=== PATIENT | male | born 1995 | race Caucasian/White ===

== ENCOUNTER 2020-10-25 08:30 | Outpatient (REF) | payer MEDICAID, SELFPAY ==
--- NOTE | ~2020-10-25 | XR_ITS ---
EXAMINATION: XR KNEE, RIGHT CLINICAL INFORMATION: Pain. COMPARISON: None TECHNIQUE: AP, lateral, tunnel, and sunrise views of the right knee. FINDINGS: Bones and soft tissues are normal. No fracture or significant joint effusion. Alignment is anatomic. Joint spaces are well maintained. No abnormal soft tissue calcification. XR/XR knee RT 4V IMPRESSION: Normal right knee.
== END 2020-10-25 08:31 | disposition home or self-care (01) ==
LOC: HO.XRAY 08:30
PROVIDERS: PCP Internal Medicine; Visit Provider Internal Medicine
DX: M25.561 Pain in right knee (principal)
CPT/HCPCS: 73564

== ENCOUNTER 2020-10-25 10:11 | Outpatient (REF) | payer MEDICAID, SELFPAY ==
--- NOTE | 2020-10-31 07:50 | MHC.AU.ANO ---
Adult Audiological Evaluation Date of Visit: 10/25/20 [employer] Pipeline Used: Not Applicable Reason for Appointment: Audiologic evaluation due to decreased hearing ability, left ear poorer than right. Dick reports he consistently needs to increase the volume of the television and frequently asks for speech to be repeated. Does patient feel they have a hearing loss?: Yes If Yes, Which Ear?: Both Ears When Was Hearing Difficulty First Noticed?: Since childhood Has hearing been tested previously?: Unknown Hearing Handicap Inventory: HHIE SCORE: 20 Based on HHIE score, patient has: Mild to moderate perceived hearing handicap Ear History: Ear Infections in Childhood: Both Ears Previous Ear Surgery: Bilteral pressure equalization tubes with complication of tubes breaking Bothersome Tinnitus/Ringing/Noises in Ears: Intermittent and brief in nature, both ears Ear used on the phone: Right Ear History of occupational noise exposure?: Yes History: History: No Medical History: Medical History: Headache, Head Injury, Experiences unsteadiness when rising quickly. History of concussion in 2013. Medication List: Lexapro, Claritin, Proair (as needed) Otoscopy: Right Ear: Unremarkable Left Ear: Unremarkable Tympanometry: Tympanometry performed due to: History of middle ear dysfunction Right Ear: Normal Middle Ear System (Type A) Left Ear: Non-compliant Middle Ear System (Type B) Otoacoustic Emissions Frequency Range Used: 1.6-8 kHz Right Ear Results: Present Emissions Analysis: Present emissions suggest normal cochlear function Rules out peripheral hearing loss greater than a mild degree Left Ear Results: Absent Emissions Analysis: Reduced/absent emissions may be consequence of middle ear dysfunction Hearing Evaluation: Transducer(s) Used: Insert Earphones Bone Conduction Method: Conventional Audiometry Stimuli Used: Pure Tones Right Ear: Description of Hearing: Normal hearing thresholds through all frequencies Left Ear: Description of Hearing: Mild conductive hearing loss through all frequencies Speech Recognition Threshold (SRT): Method Used: Monitored Live Voice Stimuli Used: Spondee Words Right Ear: 0 dB HL Left Ear: 20 dB HL Word Discrimination: Method: Recorded Lists Word Lists Used: NU-6 Right Ear: 96% at 50 dB HL Left Ear: 96% at 70 dB HL Recommendations: Referral to Ear, Nose, and Throat to address middle ear dysfunction. Audiological re-evaluation in 6 months. Will send a reminder card. Diagnosis: Primary Diagnosis: H90.12 ConductiveHL, Unilateral Left Ear, W/Unrestricted Contralateral Secondary Diagnosis: H69.92 Unspecified Eustachian Tube Dysfunction, Left Ear Services Performed: Comprehensive Audiological Evaluation (CPT 30452) Diagnostic Otoacoustic Emissions (CPT 30200, 26+TC) Tympanometry (CPT 77384) Signature: Provider: Anna Hobbs, CCC-A
== END 2020-10-25 10:12 | disposition home or self-care (01) ==
LOC: HO.SH 10:11
PROVIDERS: Visit Provider Internal Medicine
DX: H90.12 Conductive hearing loss, unilateral, left ear, with unrestricted hearing on the contralateral side (principal); H69.92 Unspecified Eustachian tube disorder, left ear
CPT/HCPCS: 92557; 92567; 92588

== ENCOUNTER 2023-11-16 08:20 | Outpatient (REF) | payer OTHER, SELFPAY ==
[2023-11-16 12:01] LABS: Alanine Aminotransferase 33 U/L (0-40); Albumin Level 4.3 g/dL (3.5-5.0); Alkaline Phosphatase 85 U/L (39-117); Anion Gap 13 (12-20); Aspartate Amino Transferase 31 U/L (5-37); Bilirubin Total 0.4 mg/dL (0.0-1.0); Blood Urea Nitrogen 12 mg/dL (9-16); Calcium 9.6 mg/dL (8.4-10.2); Carbon Dioxide 25 mmol/L (22-29); Chloride 107 mmol/L (96-108); Cholesterol 184 mg/dL (<200); Estimated Glomerular Filt Rate > 60; Glucose Random 89 mg/dL (60-115); HDL Cholesterol 35 mg/dL (>40); LDL Cholesterol Calculated 118 mg/dL (<100); Potassium 4.5 mmol/L (3.3-5.1); Sodium 140 mmol/L (135-145); Total Protein 8.1 g/dL (6.5-8.0); Triglycerides 155 mg/dL (<150)
[2023-11-16 12:03] LABS: TSH reflex Free T4 2.15 uIU/mL (0.32-4.0)
[2023-11-16 12:17] LABS: Estimated Average Glucose 108 mg/dL; Hemoglobin A1c % 5.4 % (<6.0)
[2023-11-16 12:47] LABS: Folate 5.2 ng/mL (> or = 4.0); Vitamin B12 434 pg/mL (200-900)
[2023-11-16 14:43] LABS: Reflex LDLD? No
== END 2023-11-16 08:21 | disposition home or self-care (01) ==
LOC: HO.HHCL 08:20
PROVIDERS: Visit Provider Family Medicine
DX: R25.2 Cramp and spasm (principal); R79.89 Other specified abnormal findings of blood chemistry; Z83.3 Family history of diabetes mellitus; E66.01 Morbid (severe) obesity due to excess calories; Z68.43 Body mass index [BMI] 50.0-59.9, adult
CPT/HCPCS: 36415; 80053; 80061; 82550; 82607; 82746; 83036; 84443

== ENCOUNTER 2023-11-19 10:29 | Outpatient (REF) | payer MEDICAID, SELFPAY ==
[2023-11-19 11:46] LABS: MANUAL DIFF FLAG NO
[2023-11-19 11:49] LABS: Basophils Absolute Auto 0.1 X10*3/uL (0.0-0.2); Basophils Percent Auto 0.7 % (0-2); Eosinophils Absolute Auto 0.2 X10*3/uL (0.0-0.4); Eosinophils Percent Auto 2.8 % (0-4); Hematocrit 46.1 % (42.0-52.0); Hemoglobin 14.9 g/dl (14.0-18.0); Imm Gran Abs Auto 0.01 X10*3/uL (0.00-0.03); Imm Gran Pct Auto 0.1 % (0.0-0.4); Lymphocytes Absolute Auto 3.1 X10*3/uL (1.2-4.9); Lymphocytes Percent Auto 38.1 % (20-40); Mean Corpuscular HGB Conc 32.3 g/dl (31.0-36.0); Mean Corpuscular Hemoglobin 26.4 pg (27.0-33.0); Mean Corpuscular Volume 81.7 fL (80.0-98.0); Mean Platelet Volume 8.4 fL (9.4-12.4); Monocytes Absolute Auto 0.7 X10*3/uL (0.1-1.2); Monocytes Percent Auto 7.9 % (2-11); Neutrophils Absolute Auto 4.2 x10*3/uL (2.0-8.3); Neutrophils Percent Auto 50.4 % (45-73); Platelet Count 364 X10*3/uL (160-400); Red Blood Count 5.64 X10*6/uL (4.60-5.80); Red Cell Distribution Width 13.1 % (11.0-16.0); White Blood Count 8.2 X10*3/uL (4.8-10.8)
[2023-11-19 11:52] LABS: Appearance Urine Clear; Color Urine Yellow; Glucose Urine UA Negative (Negative); Leukocyte Esterase Urine Negative (Negative); Nitrite Urine Negative (Negative); Urine Blood Negative (Negative); Urine Ketones Negative (Negative); Urine Protein Negative (Neg-Trace)
[2023-11-19 11:54] LABS: Bacteria Urine None Seen (None Seen); Hyaline Casts Urine 0-2 /LPF (0-2); RBC Urine 0-2 /HPF (0-2); Squamous Epithelial Cell Urine 0-2 /HPF (0-2); WBC Urine 0-5 /HPF (0-5)
[2023-11-19 12:20] LABS: Rheumatoid Factor < 13.0 IU/mL (<15.0)
[2023-11-19 12:23] LABS: C Reactive Protein 1.19 mg/dL (< or = 0.50); Lactate Dehydrogenase 188 U/L (118-273)
[2023-11-19 12:29] LABS: Erythrocyte Sedimentation Rate 15 MM/HR (0-15)
[2023-11-23 13:58] LABS: Cyclic Citrullinated Peptide <16 UNITS
== END 2023-11-19 10:30 | disposition home or self-care (01) ==
LOC: HO.HHCL 10:29
PROVIDERS: Visit Provider Family Medicine
DX: R25.2 Cramp and spasm (principal); R74.8 Abnormal levels of other serum enzymes
CPT/HCPCS: 36415; 81001; 83615; 83735; 85025; 85652; 86140; 86200; 86431

== ENCOUNTER 2024-10-03 08:26 | Outpatient (AMB) | payer OTHER, SELFPAY ==
--- OUTSIDE RECORDS SUMMARY | 2024-10-03 08:46 | XMS_ITS | Encounter Summary ---
Author Organization [employer] Address [address] 7t [place] [address] Care Team Providers Care Plastic Tile Setter Name Role Phone Halie Burris MD Primary Care Provider [phone] Reason for Visit * Reason Onset Date Comments prior authorization appt 03/20/2023 Encounter Details Date Type Department Care Team ([facility] st Contact Info) Description 03/20/2023 Telephone [facility] ADULT DENTAL [address] [place] [address] Hubert Broussard, YUKI [address] [place] [address] prior authorization appt Social History Tobacco Use Types Packs/Day Years Used Date Smoking Tobacco: Never Passive Smoke Exposure: Never Smokeless Tobacco: Never Housing Stability Answer Date Recorded What is your housing situation today? I have ashwin cancino 03/17/[address] you li ve. Do you have problems with any of the following? None of the above 03/17/2023 Food Insecurity Answer Date Recorded Within the past 12 months, y ou worried that your food would run out before you got money to buy more: Never True 03/17/2023 Within the past 12 months,th e food you bought just didn't last and you didn't have enough money to get more: Never True Transportation Answer Date Recorded In the past 12 months, has l ack of transportation kept you from medical appts, meetings, work or from getting things needed for daily living? No 03/17/2023 Utilities Answer Date Recorded In the past 12 months, has t he electric, gas, oil or water company threatened to shut off services in your home? No 03/17/2023 Depression Answer Date Recorded Patient Health Questionnaire-2 Score 0 06/05/2022 Sex and Gender Information Value Date Recorded Sex Assigned at Male 03/31/2022 10:37 AM EDT Legal Sex Male 10:37 AM EDT Gender Identity Male 03/31/2022 10:37 AM EDT Sexual Orientation Straight 03/31/2022 10 :37 AM EDT Occupation Industry Job Start Date Job End Date Full-time Not on file Not on file Not on file documented as of this encounter Miscellaneous Notes * Telephone Encounter - Susan Crow - 03/20/2023 9:03 AM EDT Prior authorization for tx was scanned on 03/17 for RCT. Patient would like to be scheduled. They also have secondary insurance DR documented in this encounter Plan of Treatment Upcoming Encounters Date Type Department Care Team (Late st Contact Info) Description 10/26/2024 9:00 AM EDT Office Visit [facility] MEDICINE [address] [place] [address] Halie Burris MD [address] [place] [address] 10/28/2024 2:30 PM EDT Office Visit [facility] ADULT DENTAL [address] [place] [address] Hubert Broussard, DMD [address] [place] [address] documented as of this encounter Visit Diagnoses Not on filedocumented in this encounter Care Teams Plastic Tile Setter Relationship Specialty Start Date End Date Halie Burris MD [address] [place] [address] PCP - General Family Medicine 04/17/22 documented as of this encounter
--- OUTSIDE RECORDS SUMMARY | 2024-10-03 08:46 | XMS_ITS | Patient Health Record ---
Author Organization [facility] Address [address] [place] [address] Care Team Providers Care Folding Machine Tender Name Role Phone MANDY YEN Unavailable [phone] REASON FOR REFERRAL No Information PLAN OF TREATMENT No Information Insurance Providers Payer Name Payer Address Payer Phone Subscriber Number Group Number Insured Name Patient Relationship to Insured Coverage Start Date Coverage End Date [address] [place], [place] [phone] [id number] Dick Harris Self - patient is the insured
--- OUTSIDE RECORDS SUMMARY | 2024-10-03 08:46 | XMS_ITS | Encounter Summary ---
Author Organization [employer] Address [address] [facility] 7t [place] [address] Care Team Providers Care Washing Machine Mechanic Name Role Phone Halie Burris MD Primary Care Provider [phone] Reason for Visit * Reason Onset Date Comments Med Refill 09/30/2024 Encounter Details Date Type Department Care Team ([facility] st Contact Info) Description 09/30/2024 Refill [facility] MEDICINE [address] [place], [place] [phone] Halie Burris MD [address] [place], [place] [phone] Social History Tobacco Use Types Packs/Day Years [...] encounter Miscellaneous Notes * Telephone Encounter - Jesenia Benitez - 09/30/2024 3:17 PM EDT Patient's Cate on HIPAA states Patient's seasonal allergies are bad. Requesting refill on Zyrtec. documented in this encounter Plan of Treatment Upcoming Encounters Date Type Department Care Team (Late st Contact Info) Description 10/26/2024 9:00 AM EDT Office Visit [facility] MEDICINE [address] [place] [address] Halie Burris MD [address] [place] [address] 10/28/2024 2:30 PM EDT Office Visit [facility] ADULT DENTAL [address] [place] [address] Hubert Broussard, DMD [address] [place] [address] documented as of this encounter Visit Diagnoses Not on filedocumented in this encounter Care Teams Washing Machine Mechanic Relationship Specialty Start Date End Date Halie Burris MD [address] [place] [address] PCP - General Family Medicine 04/17/22 documented as of this encounter
--- OUTSIDE RECORDS SUMMARY | 2024-10-03 08:46 | XMS_ITS | Encounter Summary ---
Author Organization [employer] Address [address] [facility] 7t [place] [address] Care Team Providers Care Cement Mason Helper Name Role Phone Halie Burris MD Primary Care Provider [phone] Encounter Details Date Type Department Care Team ([facility] st Contact Info) Description 04/21/2023 Orders Only [facility] MEDICINE [address] [place], [place] [phone] Halie Burris MD [address] [place], [place] [phone] Social History Tobacco Use Types Packs/Day Years [...] on file documented as of this encounter Plan of Treatment Upcoming Encounters Date Type Department Care Team (Late st Contact Info) Description 10/26/2024 9:00 AM EDT Office Visit [facility] MEDICINE [address] [place] [address] Halie Burris MD [address] [place] [address] 10/28/2024 2:30 PM EDT Office Visit [facility] CHC ADULT DENTAL [address] [place] [address] Hubert Broussard, DMD [address] [place] [address] documented as of this encounter Visit Diagnoses Not on filedocumented in this encounter Care Teams Cement Mason Helper Relationship Specialty Start Date End Date Halie Burris MD [address] [place] [address] PCP - General Family Medicine 04/17/22 documented as of this encounter
--- OUTSIDE RECORDS SUMMARY | 2024-10-03 08:46 | XMS_ITS | Encounter Summary ---
Author Organization [employer] [facility] Address [address] [facility] 7t [place] [address] Care Team Providers Care Web Coordinator Name Role Phone Halie Burris MD Primary Care Provider [phone] Encounter Details Date Type Department Care Team (Late st Contact Info) Description 09/12/2022 Orders Only [facility] [address] [place] [address] [phone] Halie Burris MD [address] [place] [address] [phone] Social History Tobacco Use Types Packs/Day Years Used Date Smoking Tobacco: Never Passive Smoke Exposure: Never Smokeless Tobacco: Never Depression Answer Date Recorded Patient Health Questionnaire-2 [...] Description 10/26/2024 9:00 AM EDT Office Visit [facility] [address] [place] [address] [phone] Halie Burris MD [address] [place] [phone] 10/28/2024 2:30 PM EDT Office Visit [facility] ADULT DENTAL [address] [place] [address] Hubert Broussard, DMD [address] [place] [address] documented as of this encounter Visit Diagnoses Not on filedocumented in this encounter Care Teams Web Coordinator Relationship Specialty Start Date End Date Halie Burris MD [address] [place] [address] PCP - General Family Medicine 04/17/22 documented as of this encounter
--- OUTSIDE RECORDS SUMMARY | 2024-10-03 08:46 | XMS_ITS | Encounter Summary ---
Author Organization [employer] [facility] Address [address] [place] [address] 7t [place] [address] Care Team Providers Care Injection Molding Machine Setter Name Role Phone Halie Burris MD Primary Care Provider [phone] Reason for Visit * Reason Comments Med Change Request Encounter Details Date Type Department Care Team (Late st Contact Info) Description 07/24/2022 Refill [facility] MEDICINE [address] [place] [address] [phone] Halie Burris MD [address] [place] [address] [phone] Class 3 severe obesity due to excess calories without serious comorbidity with body mass index (BMI) of 50.0 to 59.9 in adult (CMS/HCC) Social History Tobacco Use Types Packs/Day Years [...] Description 10/26/2024 9:00 AM EDT Office Visit [facility] MEDICINE [address] [place] [address] [phone] Halie Burris MD [address] [place], [place] [phone] 10/28/2024 2:30 PM EDT Office Visit [facility] CHC ADULT DENTAL [address] [place] [address] Hubert Broussard, DMD [address] [place] [address] documented as of this encounter Visit Diagnoses Diagnosis Class 3 severe obesity due to excess calories without serious comorbidity with body mass index (BMI) of 50.0 to 59.9 in adult documented in this encounter Care Teams Injection Molding Machine Setter Relationship Specialty Start Date End Date Halie Burris MD [address] [place] [address] PCP - General Family Medicine 04/17/22 documented as of this encounter
--- OUTSIDE RECORDS SUMMARY | 2024-10-03 08:46 | XMS_ITS | Encounter Summary ---
Author Organization [employer] [facility] Address [address] [facility] 7t [place] [address] Care Team Providers Care Lawn Sprinkler Installer Name Role Phone Halie Burris MD Primary Care Provider [phone] Encounter Details Date Type Department Care Team (Late st Contact Info) Description 06/05/2022 Abstract [facility] MEDICINE [address] [place], [place] [phone] Halie Burris MD [address] [place], [place] [phone] Social History Tobacco Use Types Packs/Day Years [...] file Not on file Not on file COVID-19 Exposure Response Date Recorded In the last 10 days, have yo u been in contact with someone who was confirmed or suspected to have Coronavirus/COVID-19? No / Unsure 06/05/2022 8:41 AM EST documented as of this encounter Plan of Treatment Upcoming Encounters Date Type Department Care Team (Late st Contact Info) Description 10/26/2024 9:00 AM EDT Office Visit [facility] MEDICINE [address] [place], [place] [phone] Halie Burris MD [address] [place] [address] 10/28/2024 2:30 PM EDT Office Visit [facility] ADULT DENTAL [address] [place], [place] [phone] Hubert Broussard, DMD [address] [place] [address] documented as of this encounter Visit Diagnoses Not on filedocumented in this encounter Care Teams Lawn Sprinkler Installer Relationship Specialty Start Date End Date Halie Burris MD [address] [place] [address] PCP - General Family Medicine 04/17/22 documented as of this encounter
--- OUTSIDE RECORDS SUMMARY | 2024-10-03 08:46 | XMS_ITS ---
Author Organization [facility] Address [address] [place] [address] Care Team Providers Care Pencil Inspector Name Role Phone MANDY YEN [phone] Encounters Encounter Location Date Provider Diagnosis [facility] [address] [place] [address] 08/06/2023 MANDY YEN PLAN OF TREATMENT No Information Progress Notes * STEVENAungharryDOB:1995 (28 yo M)Acc No.[id number]:08/06/2023 Patient:??Dick MOORE Provider:??MANDY HOUSTON PA-C :1995?Age:27 Y?Sex:Ma antonio Date:08/06/2023 Address:[address] [place], [place] [phone] Subjective: * Chief Complaints: * ? * Medical History:?? Objective: Assessment: Plan: * Treatment: * Procedure Codes:??06668 NO S HOW OFFICE VISIT * Images: Billing Information: * Visit Code:?? * Procedure Codes:?? 31003 NO SHOW OFFICE VISIT. * Sign off status: Pending * Provider:??MANDY HOUSTON PA-C Date:??11/2023
--- OUTSIDE RECORDS SUMMARY | 2024-10-03 08:46 | XMS_ITS | Encounter Summary ---
Author Organization [employer] Address [address] [facility] 7t [place] [address] Care Team Providers Care Doctor Of Dental Surgery Name Role Phone Halie Burris MD Primary Care Provider [phone] Encounter Details Date Type Department Care Team ([facility] st Contact Info) Description 04/09/2024 Orders Only [facility] MEDICINE [address] [place], [place] [phone] Halie Burris MD [address] [place], [place] [phone] Social History Tobacco Use Types Packs/Day Years [...] Description 10/26/2024 9:00 AM EDT Office Visit [facility] MEDICINE [address] [place] [address] Halie Burris MD [address] [place] [address] 10/28/2024 2:30 PM EDT Office Visit [facility] CH[facility] ADULT DENTAL [address] [place] [address] Hubert Broussard, DMD [address] [place] [address] documented as of this encounter Visit Diagnoses Not on filedocumented in this encounter Care Teams Doctor Of Dental Surgery Relationship Specialty Start Date End Date Halie Burris MD [address] [place] [address] PCP - General Family Medicine 04/17/22 documented as of this encounter
--- OUTSIDE RECORDS SUMMARY | 2024-10-03 08:46 | XMS_ITS | Clinical Summary ---
Author Organization [facility] Address [address] [place] [address] Care Team Providers Care Habilitative Interventionist Name Role Phone Unavailable Primary Care Provider Unavailabl e Social History Tobacco Use Types Packs/Day Years Used Date Smoking Tobacco: Never Assessed Sex and Gender Information Value Date Recorded Sex Assigned at Male 03/01/2020 1:22 PM EDT Gender Identity Not on file Sexual Orientation Not on file Plan of Treatment Health Maintenance Due Date Last Done Comments Hepatitis B Vaccines (1 of 3 - 3-dose series) 1995 Hepatitis C Screening 1995 COVID-19 Vaccine (#1) 05/28/1996 Depression Screening 2007 Preventative Health Evaluation 11/26/2013 DTap / Tdap / Td (1 - Tdap) 11/26/2014 Influenza Vaccine (#1) 2024 Pneumococcal Vaccine Aged Out No long er eligible based on patient's age to complete this topic RSV Ped < 20 months Aged Out No longe r eligible based on patient's age to complete this topic
--- OUTSIDE RECORDS SUMMARY | 2024-10-03 08:46 | XMS_ITS | Clinical Summary ---
Author Organization [employer] Address [address] [facility] [address] [place] [address] Care Team Providers Care Manager Intranet Name Role Phone Halie Burris MD Primary Care Provider [phone] Allergies Active Allergy Reactions Criticality Noted Date Comments Silva 09/12/2022 Medications hydrOXYzine HCl (Atarax) 25 MG tabletIndicati ons:Anxiety and depression 1-2 tablets by mouth 3 times a day as needed for anxiety 90 tablet 3 06/05/19 23 Active Additional Information Patient not taking.Reported on 05/18/2024 escitalopram (Lexapro) 20 MG tabletIndicati ons:Anxiety and depression TAKE 1 TABLET BY MOUTH EVERY DAY IN THE MORNING 90 tablet 3 08/31/19 24 Active Additional Information Patient not taking.Reported on 05/18/2024 Semaglutide-We ight Management (Wegovy) 0.25 MG/0.5ML solution auto-injectorI ndications:Cla ss 3 severe obesity due to excess calories without serious comorbidity with body mass index (BMI) of 50.0 to 59.9 in adult Inject 0.25 mg under the skin 1 (one) time per week. 2.5 mL 11 11/19/19 24 Active Additional Information Patient not taking.Reported on 05/18/2024 albuterol (ProAir HFA) 108 (90 Base) MCG/ACT inhaler Inhale 2 puffs every 4 (four) hours if needed for wheezing or shortness of breath. 18 g 1 11/19/19 24 Active Additional Information Patient not taking.Reported on 05/18/2024 EPINEPHrine (Epipen) 0.3 MG/0.3ML injection syringe Inject 0.3 mL (0.3 mg) as directed 1 (one) time if needed for anaphylaxis for up to 1 dose. Inject into upper leg. Call 911 after use. 1 each 1 11/19/19 Active Additional Information Patient not taking.Reported on 05/18/2024 Sodium Fluoride 1.1 % creamIndicatio ns:Dental caries [place] teeth for 2 minutes, morning and night. Spit, do not rinse. Do not eat or drink anything for 30 minutes following use. 112 g 3 06/10/19 25 Active Tirzepatide-We ight Management (Zepbound) 2.5 MG/0.5ML solution auto-injectorI ndications:Cla ss 3 severe obesity due to excess calories without serious comorbidity with body mass index (BMI) of 45.0 to 49.9 in adult Inject 0.5 mL (2.5 mg) under the skin 1 (one) time per week. Dose will be titrated up every 4 weeks as tolerated. 2 mL 3 08/02/19 25 Active phentermine 15 MG capsule Take 1 capsule (15 mg) by mouth before breakfast. 30 capsule 08/02/19 25 Active losartan (Cozaar) 25 MG tablet Take 1 tablet (25 mg) by mouth Once per day. 90 tablet 3 08/02/19 25 026 Active cetirizine (ZyrTEC) 10 MG tablet Take 1 tablet (10 mg) by mouth Once per day. 90 tablet 3 10/01/19 25 026 Active cetirizine (ZyrTEC) 10 MG tablet Take 1 tablet (10 mg) by mouth Once per day. 90 tablet 3 11/19/19 24 025 Discontinued(R eorder (will not trigger notification to Pharmacy)) Active Problems Problem Noted Date Diagnosed Date Family planning 08/01/2024 Assessment & Plan (08/01/2024 4:34 PM EST): - Patient requested referral to Urologist for vasectomy 08/01/24 Elevated CK 11/19/2023 Assessment & Plan (08/05/2024 6:24 AM EST): - CK 509 11/16/23 - Inflammatory marker / autoimmune disease work-up suggests myopathy / myositis unlikely - likely related to his weight Assessment & Plan (11/19/2023 9:30 AM EDT): - CK 509 11/16/23 - will check additional labs and UA Dyslipidemia 11/19/2023 Assessment & Plan (11/19/2023 9:36 AM EDT): -last lipid profile 11/16/23 elevated LDL and triglycerides with low HDL -continue lifestyle modifications Seasonal allergies 11/19/2023 Assessment & Plan (11/19/2023 9:33 AM EDT): - restart Cetrizine Hypertension 11/19/2023 Assessment & Plan (08/05/2024 6:20 AM EST): -Goal BP < 140/90 per JNC-8 and < 130/80 per ACC/AHA guideline (Treatment threshold >=140/90) -Continue working on lifestyle modifications -EKG 11/19/23, sinus rhythm. Arm leads are not correct. Will recheck in near future. - Will start Losartan 25 mg daily 08/01/24 - Continue working on lifestyle modifications Assessment & Plan (11/19/2023 10:05 AM EDT): - BP was elevated on 09/05/22 - Today in clinic was 138/100 - please monitor BP at home regularly - EKG 11/19/23, sinus rhythm. Arm leads are not correct. Food allergy 11/19/2023 Assessment & Plan (08/05/2024 6:22 AM EST): - pt states he has reaction to cherries and avoids fruits that bear seeds - he was referred o surgical specialist for testing, but still awaiting scheduling - encouraged to keep carrying Epi-pen and avoidance of foods that cause reaction Assessment & Plan (11/19/2023 9:35 AM EDT): - pt states he has reaction to cherries - he was referred o surgical specialist for testing, but still awaiting scheduling - encouraged to keep carrying epiPEN and avoidance of foods that cause reaction Muscle cramps 11/18/2023 Assessment & Plan (08/05/2024 6:21 AM EST): - muscle cramps seemingly isolated to legs, and related to his back surgery - elevated creatinine kinase, most likely due to his weight. - recommended try pickle brine and/or Vitamin K2 - Discussed trial of magnesium if persist 08/01/24 Assessment & Plan (11/19/2023 9:30 AM EDT): - muscle cramps seemingly isolated to legs -elevated creatinine kinase 11/16/23 -ordered additional labs and UA to further evaluate Obesity 06/05/2022 Assessment & Plan (08/01/2024 4:36 PM EST): - continue lifestyle modifications - Will prescribed Phentermine , however pt has hypertension, we will need to use with caution and pt was advised to stop if BP become elevated. 08/01/24 - Will request GLP1 RA/ Zepbound 08/01/24 Assessment & Plan (11/19/2023 9:39 AM EDT): - continue lifestyle modifications - will trial Wegovy Assessment & Plan (06/05/2022 5:08 AM EST): -Sleep study Anxiety and depression 06/05/2022 Assessment & Plan (11/19/2023 9:22 AM EDT): -S provider -Continue escitalopram 20 mg daily -Continue hydroxyzine prn -pt reports improved anxiety Assessment & Plan (06/05/2022 5:08 AM EST): -S provider -Continue escitalopram 20 mg daily -Continue hydroxyzine prn Asthma 06/05/2022 Assessment & Plan (11/19/2023 9:21 AM EDT): -Last exacerbation in June 2019, seen in [facility], Rx prednisone -Continue albuterol HFA Assessment & Plan (06/05/2022 5:08 AM EST): -Last exacerbation in June 2019, seen in [facility], Rx prednisone -Continue Flovent -Continue albuterol HFA History of right knee surgery 06/05/2022 Assessment & Plan (06/05/2022 5:09 AM EST): -ligament repair Hx of decompressive lumbar laminectomy Assessment & Plan (08/05/2024 6:18 AM EST): -L4-L5 in Mar 2020 Assessment & Plan (06/05/2022 5:09 AM EST): -L4-L5 in Mar 2020 Family history of diabetes mellitus 06/05/2022 Family history of hypertension 06/05/2022 Family history of coronary artery disease 2022 Conductive hearing loss of left ear 06/05/2022 Assessment & Plan (11/19/2023 8:47 AM EDT): -Audiology evaluation in October 2020 -Eustachian tube dysfunction and middle ear, non-compliant middle ear system, and middle ear dysfunction -Recommended to be evaluated by ENT -Check the status of ENT referral Assessment & Plan (06/05/2022 12:56 PM EST): -Audiology evaluation in October 2020 -Eustachian tube dysfunction and middle ear, non-compliant middle ear system, and middle ear dysfunction -Recommended to be evaluated by ENT -Check the status of ENT referral Encounters Date Type Department Care Team Description 09/30/2024 Refill [facility] [place] [address] Halie Burris MD 08/24/2024 10:00 AM EDT Clinical Support [facility] [place] [address] Cate Harris, JLUIS Encounter for immunization 08/24/2024 Telephone [facility] [place] [address] Halie Burris MD 2nd PA for Zepbound 08/24/2024 Travel 08/19/2024 Telephone [facility] [place] [address] Halie Burris MD Prior Auth Prescription 08/01/2024 3:45 PM EST Office Visit [address] [address] Halie Burris MD Food allergy (Primary Dx); Muscle cramps; Hypertension, unspecified type; Class 3 severe obesity due to excess calories without serious comorbidity with body mass index (BMI) of 45.0 to 49.9 in adult ([facility]); Family planning; Sterilization consult; Hx of decompressive lumbar laminectomy; Elevated CK 08/01/2024 Travel 07/27/2024 9:30 AM EST Office Visit [facility] [address] [place] [address] Hubert Broussard DMD Full coverage crown needed for root canal-treated tooth (Primary Dx) 07/27/[address] [address] Dorys Loyd [place] chart prep 07/14/[address] [address] Halie Burris MD Prior Authorization (HNE PA Request) 07/12/2024 2:30 PM EST Office Visit [facility] [address] [place] [address] Hubert Broussard DMD Full coverage crown needed for root canal-treated tooth (Primary Dx); Dental caries from Last 3 Months Immunizations Name Administration Dates Next Due DTaP 12/10/2000, 7,05/30/1996,03/29,01/27/1996 DTaP, Unspecified 03/08/2008 HPV 9-Valent 02/27/2014 Hep A, ped/adol, 2 dose 03/19/2011,03/06/2010 Hep B, Unspecified 09/29/1996,1995, 996 Hep B, adult 02/01/2020 HiB, unspecified 04/13/1997, 6,03/29/1996,01/26 IPV 04/13/1997, 6,03/29/1996,01/26 Influenza Whole 03/08/2008,04/27/2006 Influenza, IIV3, injectable 02/27/2014,1 07/05/2011,02/10/2011,03/06 Influenza, seasonal, injecta ble, preservative free 08/24/2024 MMR 01/02/2000,04/13/1997 Meningococcal ACWY, unspecified 02/27/2014,03/08 Moderna Covid-19 Vaccine 12+ 10/01/2020,09/04/19 21 Pfizer Covid-19 Vaccine 12+ 08/24/2024 Pneumococcal Conjugate PCV 20 11/19/2023 Td (adult), unspecified 10/10/2005 Tdap 02/01/2020,04/05/2019 Varicella 03/08/2008,01/14/2001 Family History Medical History Relation Name Comments Coronary artery disease Father Heart attack Father in 20s Throat cancer Maternal Grandmother Coronary artery disease Mother Diabetes type II Mother Throat cancer Mother myocardial infarct Mother in 40s Relation Name Status Comments Father Maternal Grandmother Mother Social History Tobacco Use Types Packs/Day Years Used Date Smoking Tobacco: Never Passive Smoke Exposure: Never Smokeless Tobacco: Never Tobacco Cessation:Counseling Given: Not Answered Housing Stability Answer Date Recorded What is [...] file Not on file Not on file Last Filed Vital Signs Vital Sign Reading Time Taken Comments Blood Pressure 148/100 08/01/2024 4:11 PM EST Pulse 100 08/01/2024 4:05 PM EST Temperature 35.8 ??C (96.4 ??F) 08/01/2024 4:05 PM ES T Respiratory Rate 24 08/01/2024 4:05 PM EST Oxygen Saturation 98% 08/01/2024 4:05 PM EST Inhaled Oxygen Concentration - - Weight 166 kg (366 lb 6.4 oz) 08/01/2024 4:05 PM EST Height 179.6 cm (5' 10.69 ) 06/05/2022 9:[address] Body Mass Index 51.55 06/05/2022 9:15 AM EST Plan of Treatment Upcoming Encounters Date Type Department Care Team (Late st Contact Info) Description 10/26/2024 9:00 AM EDT Office Visit [facility] [address] [place] [address] Halie Burris MD [address] [place] [address] 10/28/2024 2:30 PM EDT Office Visit [facility] [address] [place] [address] Hubert Broussard, YUKI [address] [place] [address] Health Maintenance Due Date Last Done Comments HIV Screening 1995 Alcohol/Substance Use Screening 2007 Family Planning (PISQ) 11/26/2010 HPV Vaccines (2 - Male 3-dose series) 03/27/2014 02/27/2014 Depression Screening 06/05/2023 06/05/2022, 06/05/19 23 SDOH Screening 06/05/2023 06/05/2022 Dental Prophylaxis 11/17/2024 05/18/2024 Dental Oral Exam 12/09/2024 06/10/2024 Dental X-Ray: Bitewings 06/11/2025 06/10/2024, 01/14 Tobacco Screening 08/05/2025 08/05/2024 Dental X-Ray: Full Mouth 06/11/2027 06/10/2024 Lipid Panel 11/15/2028 11/16/2023, 02/0 01/2023, 10/02/2020 DTaP/Tdap/Td Vaccines (9 - Td or Tdap) 01/31/2030 02/01/2020, 04/05/2019, 03/08/2008, Additional history exists Zoster Vaccines (1 of 2) 11/26/2045 RSV Patients and Patients Aged 60 years or older (1 - 1-dose 75+ series) 11/26/2070 HIB Vaccines Completed 04/13/1997, 05/03, 03/29/1996, Additional history exists IPV Vaccines Completed 04/13/1997, 05/03, 03/29/1996, Additional history exists Hepatitis A Vaccines Completed 03/19/2011, 03/06/20 10 Meningococcal Vaccine Completed 02/27/2014, 008 Hepatitis B Vaccines Completed 02/01/2020, 09/29/1996, 1995, Additional history exists Hepatitis C Screening Completed 10/02/2020 Pneumococcal Vaccine: Pediatrics (0 to 5 Years) and At-Risk Patients (6 to 49) Years) Completed 11/19/2023 COVID-19 Vaccine Completed 08/24/2024, 07/2020, 09/03/2020 Influenza Vaccine Completed 08/24/2024, , 05/04/2012, Additional history exists RSV under 20 months Aged Out No longe r eligible based on patient's age to complete this topic Rotavirus Vaccines Aged Out No longer eligible based on patient's age to complete this topic Procedures Procedure Name Priority Date/Time Associated Diagnosis Comments CASE PRESENTATION, DETAILED AND EXTENSIVE TREATMENT PLANNING Routine 07/27/2024 9:30 AM EST Full coverage crown needed for root canal-treated tooth 3 CROWN - PORCELAIN/CERAMIC Routine 07/27/2024 9:30 AM EST Full coverage crown needed for root canal-treated tooth CASE PRESENTATION, DETAILED AND EXTENSIVE TREATMENT PLANNING Routine 07/12/2024 2:30 PM EST Full coverage crown needed for root canal-treated tooth Dental caries 2 LO RESIN-BASED COMPOSITE - 2 SURF, POSTERIOR Routine 07/12/2024 2:30 PM EST Dental caries 3 CROWN PREP Routine 07/12/2024 2:30 PM EST Full coverage crown needed for root canal-treated tooth 3 CORE BUILDUP, INCL ANY PINS WHEN REQ Routine 07/12/2024 2:30 PM EST Full coverage crown needed for root canal-treated tooth INTRAORAL - COMPLETE SERIES OF RADIOGRAPHIC IMAGES Routine 06/10/2024 1:00 PM EST Dental caries Full coverage crown needed for root canal-treated tooth COMPREHENSIVE ORAL EVALUATION - NEW OR ESTABLISHED PATIENT Routine 06/10/2024 1:00 PM EST Dental caries Full coverage crown needed for root canal-treated tooth PROPHYLAXIS - ADULT Routine 05/18/2024 2 :00 PM EST Dental calculus Dental plaque LIPID PANEL WITH REFLEX TO DIRECT LDL Routine 11/16/2023 8:22 AM EDT Class 3 severe obesity due to excess calories without serious comorbidity with body mass index (BMI) of 50.0 to 59.9 in adult ([facility]) ZZZ HISTORICAL HEPATITIS C AB W/REFL TO HCV RNA, QN, PCR Routine 10/02/2020 3:08 PM EDT from Last 3 Months or Most Recently Relevant to Health Maintenance Results * (ABNORMAL) Lipid Panel with Reflex to Direct LDL (11/16/2023 8:22 AM EDT) Triglycerides 155(H) <150 mg/dL [facility] Comment:Desirable Triglyceri de: less than 150 mg/dLBorderline High Triglyceride 150-199 mg/dLHigh Triglyceride: 200-499 mg/dLVery High Triglyceride: greater than or equal to 5OO mg/dL Cholesterol 184 <200 mg/dL [facility] Comment:Desirable Cholestero l: less than 200 mg/dLBorderline High Cholesterol: 200-239 mg/dLHigh Cholesterol: greater than 239 mg/dL LDL Cholesterol Calculated 118(H) <100 mg/dL [facility] Comment:Desirable LDL: less than 100 mg/dLNear Optimal/Above Optimal LDL: 110- 129 mg/dLBorderline High LDL: 130-159 mg/dLHigh LDL: 160-189 mg/dLVery High LDL: greater than or equal to 190 mg/dL HDL Cholesterol 35(L) >40 mg/dL [facility] Comment:Desirable HDL: great er than 40 mg/dL Note: This HDL assay may give artificially low results in patients with liver disease. Blood 11/16/2023 8:22 AM EDT 11/16/2023 11:16 AM EDT us Halie Burris MD LAB BLOOD ORDERABLES Final Resul t [facility] [address] [place] [address] [phone] * HEPATITIS C AB W/REFL TO HCV RNA, QN, PCR (10/02/2020 3:08 PM EDT) HEPATITIS C ANTIBODY NON-REACT ANGIE NON-REACT ANGIE [facility] INDEX 0.01 <1.00 [facility] Comment: ?? HCV antibody was non-reactive. There is no laboratory ?? evidence of HCV infection. ?? In most cases, no further action is required. However, if recent HCV exposure is suspected, a test for HCV RNA (test code 24088) is suggested. ?? For additional information please refer to http://education.[employer]/faq/NYP40t2 (This link is being provided for informational/ educational purposes only.) ?? 10/02/2020 3:08 PM EDT us Reji Tejada MD HISTORICAL/NON ORDERABLE LAB S Final Result [facility] [address] from Last 3 Months or Most Recently Relevant to Health Maintenance Insurance HSN FULL DENTAL - HSN PARTIAL (MEDICAID) Care Teams Manager Intranet Relationship Specialty Start Date End Date Halie Burris MD [address] [place] [address] PCP - General Family Medicine 04/17/22
--- OUTSIDE RECORDS SUMMARY | 2024-10-03 08:46 | XMS_ITS | Encounter Summary ---
Author Organization [facility] Address [address] [place] [address] [address] [place] [address] Care Team Providers Care Concrete Mixing Truck Driver Name Role Phone Halie Burris MD Primary Care Provider [phone] Encounter Details Date Type Department Care Team (Late st Contact Info) Description 07/24/2022 Orders Only [facility] [address] [place], [place] [phone] Halie Burris MD [address] [place], [place] [phone] Class 3 severe obesity due to excess calories without serious comorbidity with body mass index (BMI) of 50.0 to 59.9 in adult (CMS/HCC) (Primary Dx) Social History Tobacco Use Types Packs/Day Years [...] Description 10/26/2024 9:00 AM EDT Office Visit [facility] [address] [place], [place] [phone] Halie Burris MD [address] [place], [place] [phone] 10/28/2024 2:30 PM EDT Office Visit [facility] [address] [place] [address] Hubert Broussard, DMD [address] [place] [address] documented as of this encounter Visit Diagnoses Diagnosis Class 3 severe obesity due to excess calories without serious comorbidity with body mass index (BMI) of 50.0 to 59.9 in adult- Primary documented in this encounter Care Teams Concrete Mixing Truck Driver Relationship Specialty Start Date End Date Halie Burris MD [address] [place] [phone] PCP - General Family Medicine 04/17/22 documented as of this encounter
--- NOTE | 2024-10-03 08:53 | MHC.OFFVIS ---
Intake Visit Reasons: Vasectomy consult Intake Note: New patient presents today for initial visit for a vasectomy consult Urology Medication:None Blood Thinner:None Antibiotic Allergies:None Allergies bedoya Allergy (Verified 10/03/24 09:42) Unknown Medication List - Last Reconciled 10/03/24 by KELSI Jameson losartan 25 mg PO DAILY phentermine 15 mg PO DAILY HPI Comments Details: Dick is a very pleasant 28-year-old male patient of Dr. Burris. He has a past medical history of hypertension, seasonal allergies, dyslipidemia, asthma, anxiety, depression, and obesity. He presents to the office today for - vasectomy evaluation Vasectomy evaluation The patient presents for vasectomy consultation.? He is currently He has fathered -?2 children, with a single partner The youngest child is - 3years old His partner is aware and permissive for a vasectomy Current form of control is rhythm Current employment is dental hygienist corporate law assistant The vasectomy may be complicated due to a history of no complicating issues. Patient education has been provided via [employer] video, via printed information, risks of failure, recovery time, bruising and potential pain syndrome have been stressed Discussion today focused on the presence of vasectomy and the risks, benefits and alternatives that are available. Vasectomy as intended as a permanent form of control. Printed information and literature was provided to the patient. Overall there is a one in 2500 failure rate. This can occur at any time after vasectomy. Risks were discussed highlighting hematoma, spermatocele, epididymal congestion, development of sperm antibodies, and development of chronic pain estimated between 1-5%. The procedure was reviewed in detail. Anatomical diagrams of the male genitalia were used to explain the location of the vas deferens. The vas deferens will be transected, the proximal end will be cauterized, a metal clip would be applied to separate the 2 vas deferens ends. It was explained the procedure will be done in the office and takes approximately 10-15 minutes. Less common problems that arise with vasectomy include hematoma, bleeding, allergic reaction to anesthetic, epididymal infection, epididymal congestion, scrotal discomfort, spermatic leak, spermatic granuloma and the possibility of antisperm antibodies. He understands these risks and wishes to proceed. Consent was signed at the office today. He also understands that it takes 12 weeks for sperm to fully clear the system. He will need to provide a semen sample at 12 weeks and if this is not clear a 2nd sample at 16 weeks. Medical clearance to stop using protection will only be provided if he satisfies published criteria for sperm clearance. [facility] Medical History (Updated 10/03/24 @ 09:49 by [facility] Anxiety about health Hypertension Seasonal allergies Dyslipidemia Elevated CK Muscle cramps Conductive hearing loss in left ear Asthma Anxiety and depression Obesity Surgical History Hx of decompressive lumbar laminectomy History of right knee surgery Review of Systems Const All systems reviewed & are unremarkable except as noted in HPI and below Physical Exam Const General: cooperative, healthy appearing, comfortable, no acute distress, well developed, alert and awake Nutritional Appearance: overweight Orientation/consciousness: patient oriented x3 Limitations: no limitations HEENT Head: Yes normal to inspection, Yes normocephalic and Yes atraumatic Ears: hearing grossly normal bilaterally Eyes General: appearance normal, both eyes and all related structures Neck Neck: Yes normal visual inspection and Yes trachea midline Chest Chest palpation & inspection: normal inspection of the chest Resp Effort & Inspection: normal respiratory effort and able to speak in complete sentences Cardio Rate: regular rate GI Inspection: Yes normal to inspection General: Yes no CVA tenderness Penis: normal penis Meatus: meatus normal Scrotum: scrotum normal and other (Right-sided epididymal head cyst) Testes: Testes normal Back/Spine/Pelvis Back: no CVA tenderness Skin General skin exam: no rashes or lesions noted Neuro General: patient oriented x3 Extrem General: Yes normal to inspection Psych Appearance: grossly normal and well kempt Mental Status: mental status grossly normal Speech and movement: Normal speech and movement present and Clear speech present Affect: normal affect Attitude: cooperative Thought process: Normal thought process present Thought content: Normal thought content present Insight: Fair insight present (Psych) Judgement: Fair judgement present (Psych) Assessment & Plan Assessment & Plan (1) Vasectomy evaluation: Code(s): Z30.09 - Encounter for other general counseling and advice on contraception Category: Medical (2) Anxiety about health: Code(s): R45.89 - Other symptoms and signs involving emotional state Category: Medical Plan Vasectomy risks and benefits were reviewed in detail; as noted above All questions were answered Consent obtained We discussed semen analysis in office verses fellows kit; information provided Prescriptions provided; we discussed importance of bringing them to office day of procedure. Will schedule for vasectomy in office Follow-up per doctor's orders; or sooner with any issues, concerns, and or questions. Medications: New diazepam (Valium) take one tab when arrive for procedure 2 mg PO DAILY 2 tabs 0RF anxiety R45.89 - Other symptoms and signs involving emotional state tramadol Bring to office day of procedure 50 mg PO Q8H PRN 7 tabs 0RF pain N43.3 - Hydrocele, unspecified Patient Instructions: The patient had an opportunity to ask questions regarding the treatment plan. All questions were answered. Physical exam, labs, and imaging were discussed and reviewed in detail. As well as risks, benefits, and discussion of treatment choices. No major barriers to understanding were identified. The patient expressed understanding and agreement with the above treatment plan. The patient was made aware they should contact our office by phone for worsening of their current condition, the appearance of new symptoms, or with any questions or concerns. Compliance is encouraged with any medications and follow up testing that is ordered. It is a privilege to be allowed the opportunity to participate in? your urological care.? Again, if you have any questions or concerns If you have any questions or concerns please do not hesitate to contact me. The office is [phone]. This note is constructed using voice recognition software. While every effort has been made to ensure accuracy manhole stripper errors may have been included. Yours sincerely, KELSI Jameson Coding Level of Care Code New Pt Level 4 (23232) Diagnoses Vasectomy evaluation Z30.09 Anxiety about health R45.89
== END 2024-10-03 09:45 | disposition home or self-care (01) ==
LOC: HO.HUSH 08:27
PROVIDERS: PCP Family Medicine; Visit Provider Nurse Practitioner Family
DX: Z30.09 Encounter for other general counseling and advice on contraception (principal); R45.89 Other symptoms and signs involving emotional state
CPT/HCPCS: 99204

== ENCOUNTER → 2024-10-03 08:26 | Outpatient (BNVA) | payer OTHER, SELFPAY | PROVIDERS: PCP Family Medicine; Visit Provider Nurse Practitioner Family ==